=== PATIENT | female | born 1945 | race Caucasian/White ===

== ENCOUNTER 2020-12-20 15:56 | Inpatient (IN) ==
[2020-12-20] MEDS ORDERED: Ondansetron ODT 4 MG TAB.RAPDIS SL PRN (18:33)
[2020-12-20] MEDS: *HR* OxyCODONE Immed Rel 5 MG TABLET PO PRN (20:44)
[2020-12-20] MEDS: diazePAM 5 MG TABLET PO PRN (20:45)
[2020-12-21] MEDS: diazePAM 5 MG TABLET PO PRN (02:45)
[2020-12-21] MEDS: *HR* OxyCODONE Immed Rel 5 MG TABLET PO PRN (02:45)
[2020-12-21 08:55] LABS: BUN/Creatinine Ratio 16 (6-26); Blood Urea Nitrogen 10 mg/dL (8-23); Calcium 8.5 mg/dL (8.6-10.3); Carbon Dioxide 25 mEq/L (23-29); Chloride 102 mEq/L (98-107); Glucose 93 mg/dL (70-105); Osmolality,Calculated 283 (280-300); Potassium 4.3 mEq/L (3.5-5.1); Sodium 137 mEq/L (136-145); eGFR For African Americans > 60 (> 60); eGFR For Non-African Americans > 60 (> 60)
[2020-12-21 09:08] LABS: Basophils % 0.5 %; Eosinophils % 0.2 %; Hematocrit 32.1 % (35.3-44.9); Hemoglobin 10.9 g/dL (11.5-15.4); Immature Granulocytes % 0.5 % (0-4); Lymphocytes # 0.9 K/mcL (0.6-4.6); Mean Corpuscular Hemoglobin 27.9 pg (28.0-33.3); Mean Corpuscular Volume 82.3 fL (83.0-100.0); Mean Platelet Volume 12.5 fL (9.4-12.4); Monocytes % 11.9 %; Neutrophils # 6.7 K/mcL (1.6-8.9); Red Cell Distribution Width 14.7 % (11.5-14.5); Segmented Neutrophils % 76.9 %; White Blood Count 8.7 K/mcL (4.3-11.1)
[2020-12-21 09:09] LABS: Platelet Count 67 K/mcL (140-400)
[2020-12-21] MEDS: Aspirin Enteric Coated 81 MG Tablet PO SCH (09:33)
[2020-12-21] MEDS: atenoloL 25 MG TABLET PO SCH (09:33)
[2020-12-21 10:47] LABS: Platelet Clumps Few (Not Present)
[2020-12-21 10:48] LABS: Platelet Estimate Decreased (Normal)
[2020-12-21] MEDS: *HR* LORazepam 1 MG TABLET PO PRN (15:14)
[2020-12-21] MEDS: Sennosides/Docusate Sodium TABLET PO SCH (21:34)
[2020-12-21] MEDS: tiZANidine 4 MG TABLET PO PRN (21:34)
[2020-12-22 07:44] LABS: BUN/Creatinine Ratio 22 (6-26); Blood Urea Nitrogen 12 mg/dL (8-23); Calcium 8.4 mg/dL (8.6-10.3); Carbon Dioxide 25 mEq/L (23-29); Chloride 107 mEq/L (98-107); Glucose 93 mg/dL (70-105); Osmolality,Calculated 287 (280-300); Potassium 4.6 mEq/L (3.5-5.1); Sodium 139 mEq/L (136-145); eGFR For African Americans > 60 (> 60); eGFR For Non-African Americans > 60 (> 60)
[2020-12-22] MEDS: Aspirin Enteric Coated 81 MG Tablet PO SCH (07:54)
[2020-12-22] MEDS: atenoloL 25 MG TABLET PO SCH (07:55)
[2020-12-22] MEDS: Sennosides/Docusate Sodium TABLET PO SCH ×2 (07:55→21:19)
[2020-12-22] MEDS: *HR* LORazepam 1 MG TABLET PO PRN ×2 (09:14→21:19)
[2020-12-23] MEDS: Sennosides/Docusate Sodium TABLET PO SCH ×2 (08:50→19:58)
[2020-12-23] MEDS: tiZANidine 4 MG TABLET PO PRN (08:50)
[2020-12-23] MEDS: Aspirin Enteric Coated 81 MG Tablet PO SCH (08:50)
[2020-12-23] MEDS: atenoloL 25 MG TABLET PO SCH (08:50)
[2020-12-23 09:08] LABS: BUN/Creatinine Ratio 20 (6-26); Blood Urea Nitrogen 12 mg/dL (8-23); Calcium 8.5 mg/dL (8.6-10.3); Carbon Dioxide 26 mEq/L (23-29); Chloride 105 mEq/L (98-107); Glucose 102 mg/dL (70-105); Osmolality,Calculated 284 (280-300); Potassium 4.4 mEq/L (3.5-5.1); Sodium 137 mEq/L (136-145); eGFR For African Americans > 60 (> 60); eGFR For Non-African Americans > 60 (> 60)
[2020-12-23] MEDS: *HR* LORazepam 1 MG TABLET PO PRN ×2 (10:31→22:41)
[2020-12-24 07:49] LABS: BUN/Creatinine Ratio 24 (6-26); Blood Urea Nitrogen 15 mg/dL (8-23); Calcium 8.3 mg/dL (8.6-10.3); Carbon Dioxide 26 mEq/L (23-29); Chloride 106 mEq/L (98-107); Glucose 96 mg/dL (70-105); Osmolality,Calculated 289 (280-300); Potassium 3.8 mEq/L (3.5-5.1); Sodium 139 mEq/L (136-145); eGFR For African Americans > 60 (> 60); eGFR For Non-African Americans > 60 (> 60)
[2020-12-24] MEDS: Aspirin Enteric Coated 81 MG Tablet PO SCH (08:17)
[2020-12-24] MEDS: tiZANidine 4 MG TABLET PO PRN (08:17)
[2020-12-24] MEDS: Sennosides/Docusate Sodium TABLET PO SCH ×2 (08:18→21:34)
[2020-12-24] MEDS: atenoloL 25 MG TABLET PO SCH (08:18)
[2020-12-24] MEDS: *HR* LORazepam 1 MG TABLET PO PRN ×2 (09:56→21:34)
[2020-12-24 13:30] LABS: % Iron Saturation 8 % (15-50); Iron 25 mcg/dL (50-170); Transferrin 222 mg/dL (203-362)
[2020-12-24 13:39] LABS: Ferritin 28 ng/mL (10-120)
[2020-12-24] MEDS: *HR* OxyCODONE Immed Rel 5 MG TABLET PO PRN (22:13)
[2020-12-25] MEDS: atenoloL 25 MG TABLET PO SCH (09:16)
[2020-12-25] MEDS: *HR* LORazepam 1 MG TABLET PO PRN ×2 (09:16→21:11)
[2020-12-25] MEDS: Sennosides/Docusate Sodium TABLET PO SCH ×2 (09:17→21:11)
[2020-12-25] MEDS: Aspirin Enteric Coated 81 MG Tablet PO SCH (09:17)
[2020-12-25] MEDS: tiZANidine 4 MG TABLET PO PRN (09:23)
[2020-12-25] MEDS: *HR* OxyCODONE Immed Rel 5 MG TABLET PO PRN (21:11)
[2020-12-26] MEDS: *HR* OxyCODONE Immed Rel 5 MG TABLET PO PRN ×2 (04:49→21:16)
[2020-12-26] MEDS: Sennosides/Docusate Sodium TABLET PO SCH ×2 (08:49→20:02)
[2020-12-26] MEDS: atenoloL 25 MG TABLET PO SCH (08:49)
[2020-12-26] MEDS: Aspirin Enteric Coated 81 MG Tablet PO SCH (08:49)
[2020-12-26] MEDS: *HR* LORazepam 1 MG TABLET PO PRN ×2 (09:08→21:12)
[2020-12-27] MEDS: *HR* OxyCODONE Immed Rel 5 MG TABLET PO PRN (03:32)
[2020-12-27] MEDS: tiZANidine 4 MG TABLET PO PRN ×2 (05:35→18:26)
[2020-12-27] MEDS: atenoloL 25 MG TABLET PO SCH (08:28)
[2020-12-27] MEDS: Aspirin Enteric Coated 81 MG Tablet PO SCH (08:28)
[2020-12-27] MEDS: Sennosides/Docusate Sodium TABLET PO SCH ×2 (08:28→21:14)
[2020-12-27] MEDS ORDERED: polyethylene glycoL 3350 17 GM POWD.PACK PO PRN (10:19)
[2020-12-27] MEDS ORDERED: polyethylene glycoL 3350 17 GM POWD.PACK PO ONE (10:19)
[2020-12-27] MEDS: *HR* HYDROcodone/Acet 5/325 mg TABLET PO PRN (10:46)
[2020-12-27] MEDS: Acetaminophen 325 MG TABLET PO PRN (13:18)
[2020-12-27] MEDS: *HR* LORazepam 1 MG TABLET PO PRN (18:26)
[2020-12-28] MEDS: *HR* OxyCODONE Immed Rel 5 MG TABLET PO PRN ×2 (00:03→22:25)
[2020-12-28] MEDS: *HR* HYDROcodone/Acet 5/325 mg TABLET PO PRN ×2 (03:57→21:06)
[2020-12-28] MEDS: tiZANidine 4 MG TABLET PO PRN ×2 (05:25→22:25)
[2020-12-28] MEDS: *HR* LORazepam 1 MG TABLET PO PRN ×2 (06:30→21:06)
[2020-12-28] MEDS: Aspirin Enteric Coated 81 MG Tablet PO SCH (09:24)
[2020-12-28] MEDS: atenoloL 25 MG TABLET PO SCH (09:24)
[2020-12-28] MEDS: Sennosides/Docusate Sodium TABLET PO SCH ×2 (09:24→21:06)
[2020-12-28] MEDS: Acetaminophen 325 MG TABLET PO PRN (09:25)
[2020-12-29] MEDS: *HR* OxyCODONE Immed Rel 5 MG TABLET PO PRN (08:19)
[2020-12-29] MEDS: Aspirin Enteric Coated 81 MG Tablet PO SCH (08:20)
[2020-12-29] MEDS: Sennosides/Docusate Sodium TABLET PO SCH ×2 (08:22→20:37)
[2020-12-29] MEDS: atenoloL 25 MG TABLET PO SCH (08:22)
[2020-12-29 08:34] LABS: Basophils # 0.1 K/mcL (0.0-0.2); Basophils % 0.8 %; Hematocrit 36.8 % (35.3-44.9); Hemoglobin 12.2 g/dL (11.5-15.4); Immature Granulocytes % 0.4 % (0-4); Lymphocytes # 1.7 K/mcL (0.6-4.6); Lymphocytes % 20.3 %; Mean Corpuscular HGB Conc 33.2 g/dL (31.6-35.5); Mean Corpuscular Hemoglobin 27.9 pg (28.0-33.3); Mean Corpuscular Volume 84.2 fL (83.0-100.0); Mean Platelet Volume 11.4 fL (9.4-12.4); Monocytes # 0.8 K/mcL (0.0-1.3); Monocytes % 9.2 %; Neutrophils # 5.9 K/mcL (1.6-8.9); Platelet Count 177 K/mcL (140-400); Red Blood Count 4.37 M/mcL (3.82-4.97); Red Cell Distribution Width 15.1 % (11.5-14.5); Segmented Neutrophils % 69.3 %; White Blood Count 8.5 K/mcL (4.3-11.1)
[2020-12-29 08:59] LABS: BUN/Creatinine Ratio 25 (6-26); Blood Urea Nitrogen 16 mg/dL (8-23); Calcium 8.6 mg/dL (8.6-10.3); Carbon Dioxide 29 mEq/L (23-29); Chloride 102 mEq/L (98-107); Glucose 94 mg/dL (70-105); Osmolality,Calculated 285 (280-300); Sodium 137 mEq/L (136-145); eGFR For African Americans > 60 (> 60); eGFR For Non-African Americans > 60 (> 60)
[2020-12-29] MEDS: tiZANidine 4 MG TABLET PO PRN (20:38)
[2020-12-29] MEDS: *HR* LORazepam 1 MG TABLET PO PRN (20:39)
[2020-12-29] MEDS: *HR* HYDROcodone/Acet 5/325 mg TABLET PO PRN (20:39)
[2020-12-30] MEDS: *HR* HYDROcodone/Acet 5/325 mg TABLET PO PRN ×2 (00:17→04:01)
[2020-12-30] MEDS: tiZANidine 4 MG TABLET PO PRN (04:05)
[2020-12-30 06:53] VITALS: BP 130/72
[2020-12-30] MEDS: Sennosides/Docusate Sodium TABLET PO SCH (08:21)
[2020-12-30] MEDS: Aspirin Enteric Coated 81 MG Tablet PO SCH (08:21)
[2020-12-30] MEDS: atenoloL 25 MG TABLET PO SCH (08:21)
== END 2020-12-30 11:00 | disposition home or self-care (01) | DRG 560 ==
LOC: INPPIK 19:47
PROVIDERS: ADMIT Family Medicine; ATTEND Family Medicine